=== PATIENT | female | born 1990 | race Two or more races ===

== ENCOUNTER 2021-08-18 22:16 | Emergency (ER) | payer OTHER ==
[2021-08-18 22:38] VITALS: BP 139/88; PULSE 71; TEMP 98.2; BMI 26.6
[2021-08-18] MEDS ORDERED: HIV POST EXPOSURE PROPHYLAXIS KIT PO ONE (22:45)
[2021-08-18] MEDS ORDERED: HIV POST EXPOSURE PROPHYLAXIS KIT NR ONE (22:57)
[2021-08-18 23:10] LABS: BASO % 0.7 % (0-2.0); EOS % 0.8 % (0-4.5); HEMATOCRIT 34.9 % (32.4-45.2); HEMOGLOBIN 12.6 GM/dL (10.7-15.3); LYMPH % 40.7 % (8-40); MCH 29.3 pg (25.7-33.7); MEAN CELL VOLUME 81.4 fl (80-96); MEAN PLT VOLUME 8.3 fl (7.5-11.1); MONO % 5.4 % (3.8-10.2); NEUT % 52.4 % (42.8-82.8); PLATELET COUNT 326 10^3/uL (134-434); RBC 4.28 M/mm3 (3.60-5.2); RDW 12.6 % (11.6-15.6); WHITE BLOOD COUNT 4.3 K/mm3 (4.0-10.0)
[2021-08-18 23:30] LABS: CALCIUM 9.4 mg/dL (8.5-10.1)
[2021-08-18 23:31] LABS: ALBUMIN 4.1 g/dl (3.4-5.0)
[2021-08-18 23:32] LABS: BLOOD UREA NITROGEN 18.7 mg/dL (7-18)
[2021-08-18 23:34] LABS: CREATININE 0.6 mg/dL (0.55-1.3)
[2021-08-18 23:35] LABS: PHOSPHOROUS 3.9 mg/dL (2.5-4.9); URIC ACID 3.9 mg/dL (2.6-7.2)
[2021-08-18 23:36] LABS: BILIRUBIN,TOTAL 0.6 mg/dL (0.2-1); TOT PROT 7.5 g/dl (6.4-8.2)
[2021-08-19 00:28] LABS: HIV INTERPRETATION NEGATIVE (NEGATIVE)
== END 2021-08-18 23:09 | disposition home or self-care (01) ==
LOC: JER 22:16 → JERFT 22:16
DX: S61.432A Puncture wound without foreign body of left hand, initial encounter (principal); W46.1XXA Contact with contaminated hypodermic needle, initial encounter
CPT/HCPCS: 36415; 80053; 82465; 82977; 83615; 84100; 84478; 84550; 84703; 85025; 86704; 86803; 87340; 87389; 87517; 99283-25